=== PATIENT | female | born 1955 | race Caucasian/White ===

== ENCOUNTER 2019-04-16 10:25 | Emergency (ER) | payer MEDICAID ==
[~2019-04-16] VITALS: Ht 157.5 cm; Wt 107.0 kg
[~2019-04-16 10:25] MED LIST: HYDR25TA4 PO; LISI10TA4 PO; PRAV10TA39 PO
[2019-04-16 10:30] VITALS: BP 167/89
[2019-04-16] MEDS ORDERED: IBUP-1984 PO (11:31)
== END 2019-04-16 11:38 | disposition home or self-care (01) ==
LOC: ER 10:25
DX: M25.561 Pain in right knee (principal); G89.29 Other chronic pain; Z79.899 Other long term (current) drug therapy; W18.39XA Other fall on same level, initial encounter; Y93.89 Activity, other specified; Y92.89 Other specified places as the place of occurrence of the external cause; Y99.8 Other external cause status
CPT/HCPCS: 73564; 99284

== ENCOUNTER 2021-06-19 01:47 | Emergency (ER) | payer MEDICARE, MEDICAID ==
[~2021-06-19] VITALS: Ht 165.1 cm; Wt 127.3 kg
[~2021-06-19 01:47] MED LIST changes: +CYCL-1 PO; +FURO40TA4 PO; +HYDR-3964 PO; -HYDR25TA4 PO; +IBUP-1985 PO; +LISI10TA27 PO; -LISI10TA4 PO; +PANT20TA18 PO; +TRAZ-251 PO
[2021-06-19] MEDS ORDERED: morphine 4 MG/ML inj SYRINge IV ONE ×2 (02:10→06:15)
[2021-06-19] MEDS ORDERED: normal saline 1000ml 1,000 ML IV ONE (02:10)
[2021-06-19] MEDS ORDERED: ondansetron/PF 4mg/2ml inj IV ONE (02:10)
[2021-06-19] MEDS ORDERED: iohexol 300mg/ml 100ml inj. ONE (02:33)
[2021-06-19 03:19] LABS: BASOPHILS % (AUTO) 0.3 % (0-1); EOSINOPHILS # (AUTO) 0.1 X10'3 (0-0.9); EOSINOPHILS % (AUTO) 1.4 % (0-6); HEMATOCRIT 39.3 % (35.0-45.0); HEMOGLOBIN 13.1 g/dl (12.0-16.0); LYMPHOCYTES # (AUTO) 1.5 X10'3 (1.1-4.8); LYMPHOCYTES % (AUTO) 18.2 % (21-51); MEAN CORPUSCULAR HEMOGLOBIN 27.4 PG (27.0-31.0); MEAN CORPUSCULAR HGB CONC 33.4 g/dL (33.0-36.5); MEAN PLATELET VOLUME 7.8 FL (7.4-10.4); MONOCYTES # (AUTO) 0.7 X10'3 (0-0.9); MONOCYTES % (AUTO) 8.7 % (2-12); NEUTROPHILS % (AUTO) 71.4 % (42-75); PLATELET COUNT 223 X10'3 (140-440); RED BLOOD COUNT 4.79 X10'6 (4.20-5.60); RED CELL DISTRIBUTION WIDTH 14.2 % (11.5-14.5); WHITE BLOOD COUNT 8.4 X10'3 (4.5-11.0)
[2021-06-19 03:33] LABS: ALANINE AMINOTRANSFERASE 29 U/L (12-78); ALBUMIN 3.8 G/DL (3.4-5.0); ALKALINE PHOSPHATASE 116 IU/L (46-116); ANION GAP 12 (8-16); ASPARTATE AMINO TRANSFERASE 24 U/L (10-37); BILIRUBIN,TOTAL 0.6 MG/DL (0.1-1.0); BLOOD UREA NITROGEN 22 MG/DL (7-18); BUN/CREATININE RATIO 16.8 (6.6-38.0); CALCIUM 8.7 MG/DL (8.5-10.1); CHLORIDE 101 MMOL/L (99-107); CREATININE 1.31 MG/DL (0.40-0.90); GLUCOSE 134 MG/DL (70-104); POTASSIUM 3.8 MMOL/L (3.5-5.1); SODIUM 138 MMOL/L (135-145); TOTAL CARBON DIOXIDE 24.7 MMOL/L (24-32); TOTAL PROTEIN 7.8 G/DL (6.4-8.2); eGFR 41 ML/MIN
[2021-06-19 03:36] LABS: LIPASE 76 U/L (73-393)
[2021-06-19 07:30] VITALS: BP 149/68
[2021-06-19] MEDS ORDERED: oxyCODONE/APAP 5-325mg tablet PO ONE (09:15)
--- NOTE | 2021-06-19 09:47 | NUR ---
Pt complaining of right upper abd pain. RN spoke with Dr. Oliva and percocet ordered. Pt being discharged and taxi called for transportation.
== END 2021-06-19 11:08 | disposition home or self-care (01) ==
LOC: ER 01:47
DX: R10.13 Epigastric pain (principal); R10.11 Right upper quadrant pain; I10 Essential (primary) hypertension; Z96.649 Presence of unspecified artificial hip joint; G89.29 Other chronic pain; Z86.19 Personal history of other infectious and parasitic diseases; Z79.899 Other long term (current) drug therapy
CPT/HCPCS: 36415; 71045; 74177; 80053; 83690; 84484; 85025; 93005; 96361; 96374; 96375; 96376; 99285; J2270; J2405; J7030; Q9967

== ENCOUNTER 2023-02-07 12:15 | Emergency (ER) | payer MEDICARE, MEDICAID ==
[~2023-02-07] VITALS: Ht 165.1 cm; Wt 115.0 kg
[2023-02-07] MEDS ORDERED: ondansetron/PF 4mg/2ml inj IV ONE (13:05)
[2023-02-07] MEDS ORDERED: propofol 10mg/ml 20ml vial IV ONE (13:10)
--- NOTE | 2023-02-07 13:53 | NUR ---
RN UNABLE TO OBTAIN IV. PT IS A HARD STICK. RADHA MADRIGAL ATTEMPTING IV WITH US AT THIS TIME.
[2023-02-07 15:01] VITALS: BP 124/69
== END 2023-02-07 15:15 | disposition home or self-care (01) ==
LOC: ER 12:15
DX: S73.004A Unspecified dislocation of right hip, initial encounter (principal); I10 Essential (primary) hypertension; Z79.899 Other long term (current) drug therapy; X58.XXXA Exposure to other specified factors, initial encounter; Y93.89 Activity, other specified; Y92.89 Other specified places as the place of occurrence of the external cause; Y99.8 Other external cause status
CPT/HCPCS: 27257; 73502; 96374; 99152; 99285; J2405; J2704; 94760; A4620